=== PATIENT | male | born 1955 ===

== ENCOUNTER 2023-09-04 20:10 | Emergency (ER) | payer MEDICARE, OTHER ==
[~2023-09-04 20:10] MED LIST: Iopamidol-370 76% 500 ML MDV (1 ML CHARGE) ONE
[2023-09-04 20:28] LABS: #Basophils 0.03 10x3/uL (0.0-0.2); %Basophils 0.5 % (0.0-1.0); %Eosinophils 3.2 % (0.0-10.0); %Lymphocytes 22.4 % (21.0-51.0); %Monocytes 8.4 % (0.0-10.0); %Neutrophils 65.2 % (42.0-75.0); Hematocrit 40.5 % (42.0-52.0); Hemoglobin 14.7 g/dL (14.0-18.0); Mean Corpuscular HGB CONC 36.3 g/dL (32.0-36.0); Mean Corpuscular Hemoglobin 33.4 pg (27.0-31.0); Mean Platelet Volume 9.8 fL (7.4-10.4); Platelet Count 142 10x3/uL (130-400); RBC Distribution Width 12.6 % (11.5-14.5)
[2023-09-04 20:43] LABS: ALT (SGPT) 127 U/L (8-55); AST (SGOT) 34 U/L (5-34); Albumin 4.2 g/dL (3.4-4.8); Alkaline Phosphatase 51 U/L (40-110); Anion Gap 20 mmol/L (10-20); BUN (Urea Nitrogen) 16 mg/dL (8.4-25.7); Bilirubin, Total 0.6 mg/dL (0.2-1.2); Calc. Creatinine Clearance 0 mL/min (70-130); Calcium 9.8 mg/dL (7.8-10.44); Carbon Dioxide 18 mmol/L (23-31); Chloride 103 mmol/L (98-107); Estimated GFR 92; Glucose 334 mg/dL (80-115); Potassium 4.5 mmol/L (3.5-5.1); Protein, Total 7.2 g/dL (5.8-8.1); Sodium 136 mmol/L (136-145)
[2023-09-04 20:49] LABS: Troponin I Less than 0.010 ng/mL (< 0.028)
[2023-09-04] MEDS ORDERED: Morphine 4 MG/ML VIAL ONE (21:28)
[2023-09-04] MEDS ORDERED: Ondansetron PF 4 MG/2 ML Vial ONE (21:28)
[2023-09-04 23:52] LABS: Troponin I Less than 0.010 ng/mL (< 0.028)
== END 2023-09-04 23:20 | disposition home or self-care (01) ==
LOC: ERS 20:10
DX: R07.9 Chest pain, unspecified (principal); K44.9 Diaphragmatic hernia without obstruction or gangrene; I10 Essential (primary) hypertension; E11.9 Type 2 diabetes mellitus without complications; F17.210 Nicotine dependence, cigarettes, uncomplicated; E78.5 Hyperlipidemia, unspecified; Z79.899 Other long term (current) drug therapy; Z79.82 Long term (current) use of aspirin; Z79.84 Long term (current) use of oral hypoglycemic drugs
CPT/HCPCS: 71045; 71275; 80053; 83690; 83880; 84484 ×2; 85025; 93005; J2270; J2405; 36415; 96374; 96375; Q9967

== ENCOUNTER 2023-11-30 08:19 | Emergency (ER) | payer OTHER ==
[2023-11-30] MEDS ORDERED: Ondansetron PF 4 MG/2 ML Vial ONE (08:54)
[2023-11-30] MEDS ORDERED: Morphine 2 MG/ML VIAL ONE (08:55)
[2023-11-30] MEDS ORDERED: Pantoprazole 40 MG VIAL ONE (08:55)
[2023-11-30] MEDS ORDERED: Iopamidol-370 76% 500 ML MDV (1 ML CHARGE) ONE (09:08)
[2023-11-30 09:15] LABS: #Basophils 0.05 10x3/uL (0.0-0.2); %Basophils 0.5 % (0.0-1.0); %Lymphocytes 21.3 % (21.0-51.0); %Monocytes 5.2 % (0.0-10.0); %Neutrophils 70.6 % (42.0-75.0); Hematocrit 44.6 % (42.0-52.0); Hemoglobin 16.1 g/dL (14.0-18.0); Mean Corpuscular HGB CONC 36.1 g/dL (32.0-36.0); Mean Corpuscular Hemoglobin 31.9 pg (27.0-31.0); Mean Corpuscular Volume 88.3 fL (78.0-98.0); Mean Platelet Volume 9.7 fL (7.4-10.4); Platelet Count 198 10x3/uL (130-400); RBC Distribution Width 12.4 % (11.5-14.5); Red Blood Cell (RBC) Count 5.05 mill/uL (4.70-6.10)
[2023-11-30 10:17] LABS: ALT (SGPT) 82 U/L (8-55); AST (SGOT) 39 U/L (5-34); Albumin 4.4 g/dL (3.4-4.8); Alkaline Phosphatase 66 U/L (40-110); Anion Gap 16 mmol/L (10-20); BUN (Urea Nitrogen) 19 mg/dL (8.4-25.7); Bilirubin, Total 1.3 mg/dL (0.2-1.2); Calc. Creatinine Clearance 0 mL/min (70-130); Calcium 9.8 mg/dL (7.8-10.44); Carbon Dioxide 21 mmol/L (23-31); Chloride 106 mmol/L (98-107); Estimated GFR 65; Globulin 2.6 g/dL (2.4-3.5); Glucose 212 mg/dL (80-115); Lipase 60 U/L (8-78); Sodium 139 mmol/L (136-145)
[2023-11-30 10:45] LABS: Bacteria/HPF None Seen HPF (None Seen); Bilirubin Negative (Negative); Blood, Urine Negative (Negative); CAUTI Indications for Culture Pelvic or flank pain; Clarity Turbid (Clear); Glucose, Urine (Dipstick) 70 mg/dL (Negative); Ketone, Urine Negative (Negative); Leukocyte Negative Leu/uL (Negative); Nitrite Negative (Negative); Protein, Urine (Dipstick) Negative (Neg-Trace); RBC/HPF 0-3 HPF (0-3); Specific Gravity, Urine 1.027 (1.002-1.036); Squamous Epithelial None Seen HPF (0-3); Urobilinogen Normal mg/dL (Less than 2); WBC/HPF 0-3 HPF (0-3); pH, Urine 5.5 (5.0-9.0)
[2023-11-30 10:47] LABS: Urine Culture Reflex No No
== END 2023-11-30 11:56 | disposition home or self-care (01) ==
LOC: ERS 08:19
DX: R10.9 Unspecified abdominal pain (principal); R19.7 Diarrhea, unspecified; K40.20 Bilateral inguinal hernia, without obstruction or gangrene, not specified as recurrent; I10 Essential (primary) hypertension; E11.9 Type 2 diabetes mellitus without complications; Z87.891 Personal history of nicotine dependence
CPT/HCPCS: 74177; 80053; 81001; 83690; 85025; J2272; J2405; J2470; Q9967; 36415; 96374; 96375